=== PATIENT | female | born 1985 | race Caucasian/White ===

== ENCOUNTER 2018-10-31 20:37 | Emergency (ER) | payer BC ==
--- NOTE | 2018-10-31 21:12 | EDM.PDOC ---
ED HPI GENERAL MEDICAL PROBLEM - General Chief Complaint: ENT Problem Stated Complaint: LEFT EAR PAIN Time Seen by Provider: 10/31/18 20:45 Source of Information: Reports: Patient, Family History Limitations: Reports: No Limitations - History of Present Illness INITIAL COMMENTS - FREE TEXT/NARRATIVE: 33-year-old female with intense left ear pain for the past several hours. She's had an upper respiratory cold for the last few days. No fevers or chills. Decreased hearing out of the left ear. No shortness of breath or cough, no nausea or vomiting. Onset: Sudden (Ear pain started fairly suddenly 4 hours ago) Duration: Hour(s): (4 hours) - Related Data Allergies Allergy/AdvReac Type Severity Reaction Status Date / Time No Known Allergies Allergy Verified 10/31/18 20:49 Home Meds: Home Meds Norgestimate-Ethinyl Estradiol [[id number] Tablet] 10/31/18 [History] Past Medical History - Past Health History Medical/Surgical History: Denies Medical/Surgical History Social & Family History - Tobacco Use Smoking Status *Q: Never Smoker ED ROS ENT - Review of Systems Review Of Systems: See Below Constitutional: Denies: Fever, Chills HEENT: Reports: Ear Pain (Left side), Rhinitis Respiratory: Denies: Shortness of Breath, Cough Cardiovascular: Denies: Chest Pain GI/Abdominal: Denies: Nausea, Vomiting Skin: Reports: No Symptoms Neurological: Denies: Headache ED EXAM, ENT - Physical Exam Exam: See Below Exam Limited By: No Limitations General Appearance: Alert, No Apparent Distress Eye Exam: Bilateral Eye: Normal Inspection Ears: Other (Right TM is normal, left is reddened and bulging, very inflamed) Nose: Normal Inspection Mouth/Throat: Normal Inspection Respiratory/Chest: No Respiratory Distress Neurological: Alert, Oriented Course - Vital Signs Last Recorded V/S: Last Vital Signs Temp 97.0 F 10/31/18 20:53 Pulse 101 H 10/31/18 20:53 Resp 16 10/31/18 20:53 BP 142/83 H 10/31/18 20:53 Pulse Ox 100 10/31/18 20:53 - Re-Assessments/Exams Free Text/Narrative Re-Assessment/Exam: 10/31/18 21:10 Patient was placed on amoxicillin 500 mg 3 times a day for 10 days for left otitis media. She'll take ibuprofen full dose for pain control and recheck in 2- 3 days if not improving. Departure - Departure Time of Disposition: 21:19 Disposition: Home, Self-Care 01 Condition: Good Clinical Impression: Otitis media Qualifiers: Otitis media type: suppurative Chronicity: acute Laterality: left Recurrence: not specified as recurrent Spontaneous tympanic membrane rupture: without spontaneous rupture Qualified Code(s): H66.002 - Acute suppurative otitis media without spontaneous rupture of ear drum, left ear - Discharge Information Instructions: Otitis Media, Adult, [id number] Referrals: PCP,None [Primary Care Provider] - Forms: ED Department Discharge Care Plan Goals: Take full dose ibuprofen for pain on a regular basis for the next couple days, and take antibiotic 3 times a day for at least 7 days. Consider recheck in 2-3 days if not improving.
== END 2018-10-31 21:19 | disposition home or self-care (01) ==
LOC: JP.ED 20:37
DX: H66.002 Acute suppurative otitis media without spontaneous rupture of ear drum, left ear (principal)
CPT/HCPCS: 99282

== ENCOUNTER 2021-08-23 06:59 | Day surgery (SDC) | payer BC ==
[2021-08-23] MEDS ORDERED: Propofol 200 MG/20 ML SDV ONE (07:09)
[2021-08-23] MEDS ORDERED: Succinylcholine 200 MG/10 ML MDV ONE (07:09)
[2021-08-23] MEDS ORDERED: fentaNYL 250 MCG/5 ML SDV ONE (07:09)
[2021-08-23] MEDS ORDERED: Neostigmine Methylsulfate 1 MG/ML 5 ML Syringe ONE (07:09)
[2021-08-23] MEDS ORDERED: Rocuronium 50 MG/5 ML Vial ONE (07:09)
[2021-08-23] MEDS ORDERED: Ondansetron 4 MG/2 ML SDV ONE (07:09)
[2021-08-23] MEDS ORDERED: Dexamethasone 4 MG/ML SDV ONE (07:09)
[2021-08-23] MEDS ORDERED: Glycopyrrolate 0.2 MG/ML 5 ML MDV ONE (07:09)
[2021-08-23] MEDS ORDERED: Acetaminophen 500 MG Tab PO ONE (07:30)
[2021-08-23] MEDS ORDERED: cefOXitin 2 GM in Sodium Chloride 0.9% 50 ML IV ONE (07:30)
[2021-08-23] MEDS ORDERED: Dextrose 5%-Lactated Ringers 1,000 ML IV SCH (07:30)
[2021-08-23] MEDS ORDERED: Bupivacaine 0.5% 50 ML MDV ONE (08:02)
[2021-08-23] MEDS ORDERED: Lidocaine 1% with EPINEPHrine 1:100,000 50 ML MDV ONE (08:02)
[2021-08-23] MEDS ORDERED: Bupivacaine 0.5%/EPINEPHrine 1:200,000 50 ML MDV ONE (08:02)
[2021-08-23] MEDS ORDERED: Ketamine 500 MG/5 ML MDV IV SCH (08:45)
[2021-08-23] MEDS ORDERED: Ketamine 16 MG in Sodium Chloride 0.9% 19.84 ML IV SCH (08:45)
[2021-08-23] MEDS ORDERED: Ropivacaine 34 ML, dexAMETHasone 8 MG, EPINEPHrine 0.4 MG, Sodium Chloride 0.9% 43.6 ML NERVRT SCH ×4 (08:45)
[2021-08-23] MEDS ORDERED: Ketorolac 30 MG/ML SDV ONE (09:07)
[2021-08-23] MEDS ORDERED: Sugammadex Sodium 200 MG/2 ML VIAL ONE (09:28)
[2021-08-23] MEDS ORDERED: Ibuprofen 600 MG Tab PO PRN (11:13)
[2021-08-23] MEDS: HYDROmorphone 2 MG Tab PO PRN ×2 (13:13→16:00)
== END 2021-08-23 16:45 | disposition home or self-care (01) ==
LOC: JP.SDS 06:59
PROVIDERS: ATTEND Surgery
DX: K81.1 Chronic cholecystitis (principal); K82.8 Other specified diseases of gallbladder; K42.0 Umbilical hernia with obstruction, without gangrene; F41.9 Anxiety disorder, unspecified; R17 Unspecified jaundice; Z98.890 Other specified postprocedural states; Z79.899 Other long term (current) drug therapy
CPT/HCPCS: 47562; 81025; A9270; J0171; J0330; J0694; J1100; J1885; J2405; J2704; J2710; J2795; J3010; J3490; J7121; 88302; 88304

== ENCOUNTER 2021-11-26 07:54 | Day surgery (SDC) | payer BC ==
[~2021-11-26 07:54] MED LIST: Midazolam 1 MG/ML 2 ML SDV ONE; Propofol 200 MG/20 ML SDV ONE; fentaNYL 100 MCG/2 ML SDV ONE
[2021-11-26] MEDS ORDERED: Dextrose 5%-Lactated Ringers 1,000 ML IV SCH (08:30)
== END 2021-11-26 10:59 | disposition home or self-care (01) ==
LOC: JP.SDS 07:54
PROVIDERS: ATTEND Surgery
DX: K64.9 Unspecified hemorrhoids (principal); F41.9 Anxiety disorder, unspecified
CPT/HCPCS: J2250; J2704; J3010; J7121